=== PATIENT | female | born 1985 | race Two or more races ===

== ENCOUNTER 2016-10-23 21:42 | Emergency (ER) | payer OTHER ==
[2016-10-23 22:33] LABS: HCG,QUALITATIVE URINE NEGATIVE
== END 2016-10-24 08:03 | disposition home or self-care (01) ==
LOC: ED 21:42
DX: J06.9 Acute upper respiratory infection, unspecified (principal); R50.9 Fever, unspecified; F41.9 Anxiety disorder, unspecified